=== PATIENT | male | born 1995 | race Two or more races ===

== ENCOUNTER 2016-12-11 20:22 | Emergency (ER) | payer OTHER ==
[~2016-12-11] VITALS: Wt 64.5 kg
[~2016-12-11 20:22] MED LIST: CIPR500T4 PO; LACT1CAP17 PO; MESA800T2 PO; METR500T PO; PANT40TA3 PO
[2016-12-11 21:40] LABS: ADD SCAN DIFF NO
[2016-12-11 21:43] LABS: HEMATOCRIT 40.1 % (42.0-52.0); HEMOGLOBIN 13.6 g/dl (14.0-18.0); MEAN CORPUSCULAR HGB CONC 33.9 g/dl (32.0-37.0); MEAN CORPUSCULAR VOLUME 91.3 fl (82.0-101.0); MEAN PLATELET VOLUME 10.9 fl (7.4-10.4); PLATELET COUNT 277 10^3/UL (140-415); RED BLOOD COUNT 4.39 10^6/ul (4.70-6.10); RED CELL DISTRIBUTION WIDTH 11.9 % (11.5-14.5); WHITE BLOOD COUNT 9.5 10^3/ul (4.8-10.8)
[2016-12-11 22:07] LABS: EOSINOPHILS # 0.3 10^3/ul (0.0-0.5); LYMPHOCYTES # 4.8 10^3/ul (0.8-2.9); MONOCYTE # 0.5 10^3/ul (0.3-0.9)
[2016-12-11 23:31] VITALS: BP 105/72; PULSE 72; RESP 16; TEMP 98.2
--- NOTE | 2016-12-11 23:43 | ERD ---
ER Documentation Chief Complaint Date/Time DATE: 12/11/16 TIME: 23:37 Chief Complaint RECTAL BLEEDING X2 MONTHS WORSE OVER PAST 5DAYS HPI 21-year-old male complaining of blood in the stool 2 month. Patient stated that he was seen here June 2016 for blood in the stool, was diagnosed with colitis. He was able to get an appointment with the GI doctor for colonoscopy, the appointment is 5 days away. Patient stated that he has been bleeding for the last 2 month continuously, and he has gotten worse the last 5 days. He has dark black colored blood about 15 times a day. Patient reports feeling more fatigued than usual. Denies fever or chills. Denies shortness of breath. Denies chest pain. Denies abdominal pain, nausea, vomiting. ROS All systems reviewed and are negative except as per history of present illness. Medications Home Meds Active Scripts Mesalamine* (Asacol HD) 800 Mg Tablet., 1800 MG PO TID, #60 TAB Prov:PETER WHITE MD 07/12/16 Lactobac Cmb #3/Fos/Pantethine (PROBIOTIC & ACIDOPHILUS CAP) 1 Each Capsule, 1 EACH PO BID, #60 CAP Prov:PETER WHITE MD 07/12/16 Pantoprazole* (Protonix*) 40 Mg Tablet.dr, 40 MG PO DAILY, #30 TAB Prov:PETER WHITE MD 07/12/16 Ciprofloxacin Hcl* (Ciprofloxacin Hcl*) 500 Mg Tablet, 500 MG PO BID, #30 TAB Prov:PETER WHITE MD 07/12/16 Metronidazole* (Flagyl*) 500 Mg Tablet, 500 MG PO Q8, #45 TAB Prov:PETER WHITE MD 07/12/16 Allergies Allergies: Coded Allergies: No Known Allergy (Unverified , 07/11/16) PMhx/Soc History of Surgery: No Anesthesia Reaction: No Hx Neurological Disorder: No Hx Respiratory Disorders: No Hx Cardiac Disorders: No Hx Psychiatric Problems: No Hx Miscellaneous Medical Probl: Yes (colitis, rectal bleed x6 months) Hx Alcohol Use: No Hx Substance Use: No Hx Tobacco Use: No Smoking Status: Never smoker Physical Exam Vitals Vital Signs Date Time Temp Pulse Resp B/P Pulse Ox O2 Delivery O2 Flow Rate FiO2 12/11/16 23:31 98.2 72 16 105/72 99 Room Air 12/11/16 20:27 99.2 98 12 123/99 99 Physical Exam General: Well-developed, well-nourished, conscious and coherent, in no distress Skin: Warm and dry without rash, good texture and turgor Head: Normocephalic without evidence of trauma Eyes: Sclera and conjunctivae normal; pupils equal, round, and reactive to light; extraocular movements are intact Neck: Supple without meningismus or adenopathy. Carotids are equal. Trachea midline. No bruits or JVD Chest: Normal AP diameter. Good expansion without retractions. Nontender. Lungs are clear to auscultate bilaterally with good tidal volume Heart: Regular rate and rhythm. No murmur, rub, or gallops heard Abdomen: Soft and nontender without masses, guarding, or rebound. Bowel sounds are active. No hepatosplenomegaly Back: Without spinal or CVA tenderness Extremities: Full range of motion. Good strength bilaterally. No clubbing, cyanosis, or edema. Peripheral pulses are intact. Sensation intact Neuro: Alert and oriented 4, GCS 15. Cranial nerves grossly intact. Motor and sensory exams nonfocal. Moves all extremities. Speech clear. Gait normal Result Diagram: 12/11/162132 Results 24 hrs Laboratory Tests Test 12/11/16 21:33 White Blood Count 9.510^3/ul Red Blood Count 4.3910^6/ul Hemoglobin 13.6g/dl Hematocrit 40.1% Mean Corpuscular Volume 91.3fl Mean Corpuscular Hemoglobin 31.0pg Mean Corpuscular Hemoglobin Concent 33.9g/dl Red Cell Distribution Width 11.9% Platelet Count 44044^3/UL Mean Platelet Volume 10.9fl Neutrophils % 42.0% Lymphocytes % 50.0% Monocytes % 5.0% Eosinophils % 3.0% Neutrophils # 4.010^3/ul Lymphocytes # 4.810^3/ul Monocytes # 0.510^3/ul Eosinophils # 0.310^3/ul Giant Platelets OCCASIONAL Procedures/MDM Well-appearing 21-year-old male with history of colitis present ED with melena 2 month. CBC was obtained to rule out anemia. CBC showed mild anemia with hemoglobin at 13.6 and hematocrit that 40.1. He does not require transfusion. He already has a colonoscopy scheduled in 5 days, I advised patient that he needs to follow-up with the GI doctor for the colonoscopy, that is the definitive treatment for GI bleed. Patient appears well, stable for discharge and outpatient management. Medical decision making shared with patient and family. Education provided to patient and family. Patient and family expressed understanding of the plan. Medications on discharge: None. Follow-up: GI as scheduled The case was reviewed and discussed with Dr. Gonzáles, who agrees with the plan of care including labs, treatment, and advanced imaging as appropriate. Departure Diagnosis: Primary Impression: Blood in stool Additional Impressions: Anemia Colitis Condition: Good Patient Instructions: Anemia Additional Instructions: Please follow up with GI and colonoscopy as scheduled. GAMALIEL BARNETT NP December 11, 2016 23:43
== END 2016-12-11 23:33 | disposition home or self-care (01) ==
LOC: FTE 20:22
DX: K92.1 Melena (principal); R40.2412 Glasgow coma scale score 13-15, at arrival to emergency department; D64.9 Anemia, unspecified; K52.9 Noninfective gastroenteritis and colitis, unspecified
CPT/HCPCS: 36415; 85025; Z7502; 99283

== ENCOUNTER 2016-12-16 07:02 | Day surgery (SDC) | payer OTHER ==
[~2016-12-16] VITALS: Ht 167.6 cm; Wt 64.6 kg
[2016-12-16 07:34] VITALS: Ht 167.6 cm; Wt 64.6 kg
[2016-12-16 07:59] VITALS: BP 123/64; PULSE 86; RESP 20
[2016-12-16] MEDS ORDERED: FENTAnyl 50 MCG/ML VIAL ONE (08:55)
[2016-12-16] MEDS ORDERED: MIDAZOLAM 1 MG/ML 2 ML INJ ONE ×2 (08:56)
[2016-12-16 09:00] VITALS: BP 110/62; PULSE 98; RESP 15
--- NOTE | 2016-12-16 11:02 | GILP ---
DATE OF PROCEDURE: NAME OF PROCEDURES: Colonoscopy and biopsy. SURGEON: Eloy Hannah MD PREOPERATIVE DIAGNOSES: 1. Chronic diarrhea. 2. Rectal bleeding. POSTOPERATIVE DIAGNOSES: 1. Poor prep making the exam suboptimal and incomplete. 2. Severe ulcerative colitis. 3. Biopsies were taken for histopathology. INDICATION FOR THE PROCEDURE: Mr. Harjinder Art is an 21-year-old male patient who had chronic diar christopher and rectal bleeding. The patient was scheduled for colonoscopy for further evaluation. The procedure and possible complications are well explained to the patient and the family and consen t was obtained. DESCRIPTION OF PROCEDURE: Under the influence of fentanyl and Versed, the colonoscope was carefully introduced in the rectum and it was advanced to the proximal part of the colon. FINDINGS: The patient had poor prep making the exam suboptimal and incomplete. The patient was not ed to have severe ulcerative colitis. Biopsies were taken for histopathology. He tolerated the procedure very well and there was no complication from the procedure. At the end o f the procedure, he was awake with stable vital signs and he was discharged home to the care of his family. IMPRESSION: 1. Poor prep making the exam suboptimal and incomplete. 2. Severe ulcerative colitis. 3. Biopsies were taken for histopathology. PLAN: Apriso 2 tablets p.o. b.i.d. Dictated By: ELOY ROBLEDO/MAXWELL Conf#: [id number] DID#: [id number]
== END 2016-12-16 16:36 | disposition home or self-care (01) ==
LOC: GIL 07:02
PROVIDERS: ATTEND Internal Medicine Gastroenterology
DX: K51.90 Ulcerative colitis, unspecified, without complications (principal)
CPT/HCPCS: 45380; 88305; J2250; J3010; Z7610

== ENCOUNTER 2017-04-10 14:23 | Emergency (ER) | payer MEDICAID, OTHER ==
[~2017-04-10] VITALS: Wt 61.5 kg
[2017-04-10] MEDS ORDERED: MESA0.372 PO (19:35)
[2017-04-10 20:19] LABS: ADD UMIC NO; UR ASCORBIC ACID NEGATIVE (NEGATIVE); UR BILIRUBIN (Dip) NEGATIVE (NEGATIVE); UR BLOOD (Dip) NEGATIVE (NEGATIVE); UR CLARITY CLEAR (CLEAR); UR COLOR COLORLESS (YELLOW); UR GLUCOSE (Dip) NEGATIVE (NEGATIVE); UR KETONES (Dip) NEGATIVE (NEGATIVE); UR LEUKOCYTE ESTERASE (Dip) NEGATIVE Leu/ul (NEGATIVE); UR NITRITE (Dip) NEGATIVE (NEGATIVE); UR SPECIFIC GRAVITY (Dip) 1.001 (1.003-1.030); UR TOTAL PROTEIN (Dip) NEGATIVE (NEGATIVE); UR UROBILINOGEN (Dip) NEGATIVE (NEGATIVE)
[2017-04-10 20:23] LABS: ABNORMAL IP MESSAGE 1; BASOPHILS % 0.2 % (0.0-2.0); EOSINOPHILS # 0.8 10^3/ul (0.0-0.5); EOSINOPHILS % 8.1 % (0.0-7.0); HEMATOCRIT 39.5 % (42.0-52.0); HEMOGLOBIN 12.5 g/dl (14.0-18.0); INR 1.03; LYMPHOCYTES # 5.8 10^3/ul (0.8-2.9); LYMPHOCYTES % 58.6 % (15.0-51.0); MEAN CORPUSCULAR HEMOGLOBIN 25.9 pg (29.0-33.0); MEAN CORPUSCULAR HGB CONC 31.6 g/dl (32.0-37.0); MONOCYTE # 0.6 10^3/ul (0.3-0.9); MONOCYTES % 6.2 % (0.0-11.0); NEUTROPHIL # 2.6 10^3/ul (1.6-7.5); NEUTROPHILS % 26.8 % (39.0-77.0); PLATELET COUNT 405 10^3/UL (140-415); POSITIVE DIFF @See below; PROTIME 13.5 Sec (12.2-14.2); PT RATIO 1.1; RED BLOOD COUNT 4.82 10^6/ul (4.70-6.10); RED CELL DISTRIBUTION WIDTH 13.5 % (11.5-14.5); WHITE BLOOD COUNT 9.9 10^3/ul (4.8-10.8)
[2017-04-10 20:30] LABS: ALBUMIN 4.3 g/dl (3.3-4.9); BILIRUBIN,INDIRECT 0.1 mg/dl (0-1.1); BILIRUBIN,TOTAL 0.1 mg/dl (0.2-1.3); CALCIUM 9.2 mg/dl (8.4-10.2); CREATININE 0.81 mg/dl (0.61-1.24); POTASSIUM 4.2 mmol/L (3.5-5.1); TOTAL PROTEIN 8.6 g/dl (6.1-8.1)
[2017-04-10 21:02] LABS: PARTIAL THROMBOPLASTIN TIME 30.5 Sec (25.0-35.0)
--- NOTE | 2017-04-10 22:01 | ERD ---
ER Documentation Chief Complaint Date/Time DATE: 04/10/17 TIME: 21:38 Chief Complaint BLOOD IN STOOL; FEELING OF WEAKNESS HPI This is a 21-year-old male with a history of known irritable bowel disease and colitis with chronic blood is his stool since last June who is presenting with blood in his stool. He came to the emergency department today, because he thought there was a little bit more blood today then was typical. He has had intermittent lightheadedness over the last several months, and he feels that his eyes are little more pale than usual. The patient denies headache or vision changes at this time. He denies any lightheadedness or dizziness at this time. He has no nausea or vomiting. He has no chest pain or trouble breathing. He does not have any abdominal pain at this time. He is not pale. He has had no changes to urination. The patient's bowel movements are not changed, but they are chronically bloody. The patient takes medication for IBD , including mesalamine and steroids, but he feels that it is not helping. He recently stopped a course of steroids 4 days ago. The patient wanted to come into the ER to get checked out and make sure that he was not anemic. ROS All systems reviewed and are negative except as per history of present illness. Medications Home Meds Reported Medications Mesalamine* (Apriso*) 0.375 Gm Cap.sr.24h, 1 CAP PO Q8H, CAP 04/10/17 Discontinued Reported Medications [None] No Conflict Check 12/16/16 Allergies Allergies: Coded Allergies: No Known Allergy (Unverified , 04/10/17) PMhx/Soc History of Surgery: No Anesthesia Reaction: No Hx Neurological Disorder: No Hx Respiratory Disorders: No Hx Cardiac Disorders: No Hx Psychiatric Problems: No Hx Miscellaneous Medical Probl: Yes (colitis) Hx Alcohol Use: No Hx Substance Use: No Hx Tobacco Use: No Smoking Status: Never smoker Physical Exam Vitals Vital Signs Date Time Temp Pulse Resp B/P Pulse Ox O2 Delivery O2 Flow Rate FiO2 04/10/17 22:24 98.1 70 20 105/66 99 Room Air 04/10/17 21:03 68 18 110/69 100 Room Air 04/10/17 18:59 98.5 65 16 113/63 99 Room Air 04/10/17 14:43 98.0 94 18 134/86 99 Physical Exam Const: No apparent distress, well-developed, well-nourished Head: Atraumatic Eyes: Normal Conjunctiva ENT: Normal External Ears, Nose and Mouth. Neck: Full range of motion. ~ No meningismus. Resp: Clear to auscultation bilaterally Cardio: Regular rate and rhythm, no murmurs Abd: Soft, non tender, non distended. Normal bowel sounds Skin: No petechiae or rashes Back: No midline or flank tenderness Ext: No cyanosis, or edema Neur: Awake and alert Psych: Normal Mood and Affect Result Diagram: 04/10/17200904/10/172009 Results 24 hrs Laboratory Tests Test 04/10/17 20:10 White Blood Count 9.910^3/ul Red Blood Count 4.8210^6/ul Hemoglobin 12.5g/dl Hematocrit 39.5% Mean Corpuscular Volume 82.0fl Mean Corpuscular Hemoglobin 25.9pg Mean Corpuscular Hemoglobin Concent 31.6g/dl Red Cell Distribution Width 13.5% Platelet Count 64734^3/UL Mean Platelet Volume 11.0fl Neutrophils % 26.8% Lymphocytes % 58.6% Monocytes % 6.2% Eosinophils % 8.1% Basophils % 0.2% Nucleated Red Blood Cells % 0.0/100WBC Neutrophils # 2.610^3/ul Lymphocytes # 5.810^3/ul Monocytes # 0.610^3/ul Eosinophils # 0.810^3/ul Basophils # 0.010^3/ul Nucleated Red Blood Cells # 0.010^3/ul Prothrombin Time 13.5Sec Prothrombin Time Ratio 1.1 INR International Normalized Ratio 1.03 Activated Partial Thromboplast Time 30.5Sec Urine Color COLORLESS Urine Clarity CLEAR Urine pH 7.0 Urine Specific Ray 1.001 Urine Ketones NEGATIVEmg/dL Urine Nitrite NEGATIVEmg/dL Urine Bilirubin NEGATIVEmg/dL Urine Urobilinogen NEGATIVEmg/dL Urine Leukocyte Esterase NEGATIVELeu/ul Urine Hemoglobin NEGATIVEmg/dL Urine Glucose NEGATIVEmg/dL Urine Total Protein NEGATIVEmg/dl Sodium Level 142mmol/L Potassium Level 4.2mmol/L Chloride Level 107mmol/L Carbon Dioxide Level 26mmol/L Anion Gap 13 Blood Urea Nitrogen 10mg/dl Creatinine 0.81mg/dl Glucose Level 104mg/dl Calcium Level 9.2mg/dl Total Bilirubin 0.1mg/dl Direct Bilirubin 0.00mg/dl Indirect Bilirubin 0.1mg/dl Aspartate Amino Transf (AST/SGOT) 13IU/L Alanine Aminotransferase (ALT/SGPT) 34IU/L Alkaline Phosphatase 70IU/L Total Protein 8.6g/dl Albumin 4.3g/dl Globulin 4.30g/dl Albumin/Globulin Ratio 1.00 Procedures/MDM [facility] Patient's presentation warrants further investigation. The patient does endorse hematochezia. A rectal exam was deferred pending the patient's blood work. The patient does not have signs consistent with a symptomatic anemia at this time. He is not orthostatic. His vital signs are stable. Aside from reported hematochezia, the patient also does not have signs of an acute exacerbation of IBD. The patient has no abdominal tenderness. His abdomen is soft and nondistended. He has been eating well without nausea. The patient describes his bleeding as chronic for almost 9 months. 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 Blood work will be obtained to evaluate for signs of an infection as well as signs of anemia. We also evaluate for any other intra-abdominal pathology with a CMP and urinalysis. The patient has no left upper quadrant tenderness or radiating back pain. I do not suspect pancreatitis and I will not send off a lipase. LABS The patient's blood work was obtained and reviewed. The patient seemed shows no leukocytosis or left shift. The patient is afebrile, and I do not suspect a systemic infection. The patient is mildly anemic today, but this does not require transfusion or emergent treatment at this time. The patient's platelet count is unremarkable. The patient's CMP shows no signs of metabolic or electrolyte abnormality. The patient has normal renal and hepatic function testing. The patient's INR is unremarkable, and I do not suspect a coagulopathy. The patient's urinalysis shows no signs of hematuria or infection. TREATMENT/DISPOSITION The patient does have a mild anemia, but he has no signs of a symptomatic anemia. This may be worked up further as an outpatient. 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 He may require a subsequent colonoscopy. Given the patient's lack of symptoms, I did not start him on steroids immediately as he completed a course just 4 days ago. Restarting steroid medications should be discussed with his primary physician or salesperson [employer]. The patient's vital signs are stable and I feel that the patient is safe for discharge. He will be given precautions with which to return to the emergency department. Departure Diagnosis: Primary Impression: Anemia Anemia type: unspecified type Qualified Code: D64.9 - Anemia, unspecified type Additional Impressions: Blood in stool IBD (inflammatory bowel disease) Condition: Stable MALICK BARNARD MD Apr 10, 2017 21:48
[2017-04-10 22:24] VITALS: BP 105/66; PULSE 70; RESP 20; TEMP 98.1
== END 2017-04-10 22:26 | disposition home or self-care (01) ==
LOC: E/R 14:23
DX: D64.9 Anemia, unspecified (principal); R19.5 Other fecal abnormalities; K63.9 Disease of intestine, unspecified
CPT/HCPCS: 80053; 81003; 85025; 85610; 85730; Z7502; 99283